=== PATIENT | female | born 1935 | race Caucasian/White ===

== ENCOUNTER 2020-07-23 05:59 | Outpatient (RCR) | payer MEDICARE ==
[~2020-07-23] VITALS: Ht 165.1 cm; Wt 90.5 kg
[2020-07-23] MEDS ORDERED: ACET-78 PO (14:12)
[2020-07-23] MEDS ORDERED: BISA10SU58 RC (14:13)
[2020-07-23] MEDS ORDERED: SENN8.6T17 PO (14:23)
[2020-07-23] MEDS ORDERED: MELO15TA14 PO (14:23)
[2020-07-23] MEDS ORDERED: LEVO150T PO (14:23)
[2020-07-23] MEDS ORDERED: ACHD5005 PO (14:23)
[2020-07-23] MEDS ORDERED: HYOS0.1281 PO (14:23)
[2020-07-23] MEDS ORDERED: CARV6.252 PO (14:23)
[2020-07-23] MEDS ORDERED: FURO-125 PO (14:23)
[2020-07-23] MEDS ORDERED: PRED5DRO24 OP (14:23)
[2020-07-23] MEDS ORDERED: GABA-486 PO (14:23)
[2020-07-23] MEDS ORDERED: DEXT1DRO8 OP (14:23)
[2020-07-23] MEDS ORDERED: ALLO100T PO (14:23)
[2020-07-23] MEDS ORDERED: POTA10CA43 PO (14:23)
[2020-07-23] MEDS ORDERED: CLIN150C18 PO (14:59)
[2020-07-23] MEDS ORDERED: ESCI10TA PO (14:59)
[2020-07-23] MEDS ORDERED: LORA2ORA PO (14:59)
[2020-07-23] MEDS ORDERED: PROM118S5 PO (14:59)
--- NOTE | 2020-07-30 10:16 | Progress Note-Pre Operative ---
Pre-Operative Progress Note H&P Reviewed The H&P was reviewed, patient examined and no changes noted. Date Seen by Provider: Jul 30, 2020 Time Seen by Provider: : Date H&P Reviewed: Jul 30, 2020 Time H&P Reviewed: : Pre-Operative Diagnosis: multiple crious teeth nonrestorable BASSEM JOYCE DDS Jul 30, 2020 10:16
[2020-07-30] MEDS ORDERED: HYDROcodone/APAP 7.5MG-325 MG/15 ML (LORTAB) UDC PO PRN (10:30)
== END 2020-07-26 14:29 | disposition home or self-care (01) ==
LOC: PREOP 05:59
PROVIDERS: ATTEND Specialist
DX: Z01.818 Encounter for other preprocedural examination (principal)

== ENCOUNTER 2020-07-30 08:59 | Day surgery (SDC) | payer MEDICARE ==
[~2020-07-30] VITALS: Ht 165.1 cm; Wt 90.5 kg
[2020-07-30] VITALS (11 sets, daily range): BP systolic 127–178; BP diastolic 63–78
[~2020-07-30 08:59] MED LIST: ACET-78 PO; ACHD5005 PO; ALLO100T PO; BISA10SU58 RC; CARV6.252 PO; CLIN150C18 PO; DEXT1DRO8 OP; ESCI10TA PO; FURO-125 PO; GABA-486 PO; HYOS0.1281 PO; LEVO150T PO; LORA2ORA PO; MELO15TA14 PO; POTA10CA43 PO; PRED5DRO24 OP; PROM118S5 PO; SENN8.6T17 PO
[2020-07-30] MEDS ORDERED: ceFAZolin INJECTION 0 MG ONE (09:02)
[2020-07-30] MEDS ORDERED: WATER (STERILE) FOR INJECTION 0 ML ONE (09:02)
[2020-07-30] MEDS ORDERED: SEVOFLURANE (ULTANE) 15 ML INHAL SOLN ONE (09:21)
[2020-07-30] MEDS ORDERED: NEOSTIGMINE 3 MG/3 ML VIAL ONE (09:21)
[2020-07-30] MEDS ORDERED: GLYCOPYRROLATE 0.2 MG/ML (ROBINUL) 2 ML VIAL ONE (09:21)
[2020-07-30] MEDS ORDERED: LIDOCAINE PF 2% 5 ML (XYLOCAINE) VIAL ONE (09:21)
[2020-07-30] MEDS ORDERED: ONDANSETRON 4 MG/2 ML (SDV) Z0FRAN ONE (09:21)
[2020-07-30] MEDS ORDERED: fentaNYL INJECTION 100 MCG/2 ML AMP ONE (09:21)
[2020-07-30] MEDS ORDERED: proPOfol 200 MG/20 ML (DIPRIVAN) VIAL IV ONE (09:21)
[2020-07-30] MEDS ORDERED: ROCURONIUM 10 MG/ML 5 ML SYRINGE IV ONE (09:21)
[2020-07-30] MEDS ORDERED: LACTATED RINGERS 1,000 ML IV PRN (09:30)
[2020-07-30] MEDS ORDERED: ceFAZolin 2 GM IV Premixed 50 ML IV ONE (09:30)
[2020-07-30] MEDS ORDERED: PHENYLEPHRINE 0.25% NASAL SPR (NEO-SYNEPHRINE) 15 ML NS ONE ×2 (09:31→09:45)
[2020-07-30] MEDS ORDERED: ROPIVACAINE 5MG/ML 30ML VIAL ONE (09:33)
[2020-07-30] MEDS ORDERED: LIDOCAINE/EPI 2% 1:100,00 (XYLOCAINE) 20 ML VIAL ONE (09:33)
[2020-07-30] MEDS ORDERED: fentaNYL INJECTION 100 MCG/2 ML AMP IVP ONE (09:45)
[2020-07-30] MEDS ORDERED: ONDANSETRON 4 MG/2 ML (SDV) Z0FRAN IVP PRN (09:45)
[2020-07-30] MEDS ORDERED: CLINDAMYCIN 600 MG/50 ML IVPB 50 ML IV ONE ×2 (10:10→10:45)
--- NOTE | 2020-07-30 11:09 | Diagnostic Imaging Report ---
INDICATION: Preop assessment for dental surgery. COMPARISON: None available. TECHNIQUE: Three views of the calvarium were obtained. FINDINGS: No punched-out lytic lesion within the skull. No periapical lucencies are seen within the visualized teeth. There are scattered foci of dental amalgam. No lytic lesion within the mandible. IMPRESSION: No osseous abnormality by radiography. Dictated by: Dictated on workstation # [id number]
[2020-07-30] MEDS ORDERED: HYDROcodone/APAP 7.5MG-325 MG/15 ML (LORTAB) UDC PO PRN (12:00)
[2020-07-30] MEDS ORDERED: CLIN150C2 PO (13:02)
[2020-07-30] MEDS ORDERED: ACHD5005 PO (13:02)
[2020-07-30] MEDS ORDERED: HYDROcodone/APAP 7.5MG-325 MG/15 ML (LORTAB) UDC ONE (13:53)
--- NOTE | 2020-08-01 07:26 | Anesthesia-General Post-Op ---
General Patient Condition Mental Status/LOC: Same as Preop Cardiovascular: Satisfactory Nausea/Vomiting: Absent Respiratory: Satisfactory Pain: Controlled Complications: Absent Post Op Complications Complications None Follow Up Care/Instructions Patient Instructions None needed. Anesthesia/Patient Condition Patient Condition Patient was seen after the procedure and she was doing well, no complaints, stable vital signs, no apparent adverse anesthesia problems. PHAN MARTINEZ DO Aug 01, 2020 07:26
--- NOTE | 2020-08-16 01:43 | OPERATIVE REPORT ---
DATE OF SERVICE: 07/30/2020 SERVICE: employment case manager. PREOPERATIVE DIAGNOSES: Grossly carious and nonfunctional teeth numbers 3, 4, 5, 6, 8, 9, 10, 11, 12, 13, 14 then 19, 20, 21, 22, 23, 24, 25, 26, 27, 28, 29, 30. POSTOPERATIVE DIAGNOSES: Grossly carious and nonfunctional teeth numbers 3, 4, 5, 6, 8, 9, 10, 11, 12, 13, 14 then 19, 20, 21, 22, 23, 24, 25, 26, 27, 28, 29, 30. PROCEDURE: Extraction of afore-mentioned teeth as well as upper and lower alveolectomies. SURGEON: Bassem Joyce DDS FINANCIAL SERVICES ASSISTANT: . ANESTHESIA: General endotracheal. COMPLICATIONS: There were no complications. ESTIMATED BLOOD LOSS: Minimal. FLUIDS: 650 mL of crystalloid. HISTORY OF PRESENT ILLNESS AND INDICATIONS FOR PROCEDURE: The patient is an 85-year-old white female, who presents with numerous health issues, particularly with coronary artery disease, hypertension as well as previously being treated for abdominal carcinomatosis. The patient is incapable being treated as an outpatient. After speaking extensively with her family, it was determined she would best be served by having this procedure performed at [facility] in [place]. The family was given the opportunity for questions, they were answered and then after consideration, they decided to proceed with the treatment plan. DESCRIPTION OF PROCEDURE: The patient was taken to the operating room and placed on the operating table. The appropriate monitors were placed and anesthesia was induced via nasotracheal intubation without difficulty. Once this was secured, the surgeon left the room, returned in donned sterile gowns and gloves and prepped and draped the patient in the usual standard and sterile fashion. After this, I deposited local anesthesia and bilateral mandibular blocks and maxillary infiltration. This allowed to take effect. After this, I elevated a full thickness mucoperiosteal flap in the maxilla. The teeth were then luxated with a #301 elevator and they were removed without difficulty in their entirety. There were no retained roots. The sinus was not exposed. There was no excessive hemorrhage and I then closed after removing any bony projections or undercuts and any rough or irregular surfaces. Copiously irrigated with normal saline and closed with 3-0 chromic gut in an interrupted and running fashion. I then turned my attention to the mandibular arch after a full thickness mucoperiosteal flap was elevated after using a 15 blade. I then luxated the mandibular teeth with a #301 elevator and then removed with a lower [place] forceps. There were no retained roots. There was no excessive hemorrhage. The neurovascular bundle was not visualized after luxating and removing the mandibular teeth, I then used a rongeur and rotary handpiece to remove any bony projections or undercuts, smooth any rough or irregular surfaces with a bone file and/or handpiece. After this, we copiously irrigated with normal saline and then closed the incision with 3-0 chromic gut in a running and interrupted fashion. This completed our procedure. The patient was then allowed to emerge from her general anesthetic. She was then extubated in the operating room after breathing spontaneously, she was then transported to the recovery room, assessed to have stable vital signs, breathing spontaneously with a pulse ox of 99%. Job ID: [id number] DocumentID: [id number] Dictated Date: 08/15/2020 18:22:59 Manufacturing Sales Representative Date: 08/16/2020 01:42:19 Dictated By: BASSEM JOYCE DDS
== END 2020-07-30 14:30 | disposition home or self-care (01) ==
LOC: SDC 08:59
PROVIDERS: ATTEND Specialist
DX: K02.9 Dental caries, unspecified (principal); J43.9 Emphysema, unspecified; E03.9 Hypothyroidism, unspecified; I10 Essential (primary) hypertension; K21.9 Gastro-esophageal reflux disease without esophagitis; I25.10 Atherosclerotic heart disease of native coronary artery without angina pectoris; Z79.899 Other long term (current) drug therapy; Z88.0 Allergy status to penicillin; Z88.5 Allergy status to narcotic agent; Z88.1 Allergy status to other antibiotic agents; Z88.8 Allergy status to other drugs, medicaments and biological substances
CPT/HCPCS: 70250; 87081